=== PATIENT | male | born 1970 | race African-American/Black ===

== ENCOUNTER 2017-03-02 15:03 | Emergency (ER) | payer OTHER ==
[~2017-03-02] VITALS: Ht 177.8 cm; Wt 95.3 kg
[2017-03-02 15:19] VITALS: BP 167/104
--- NOTE | 2017-03-02 15:36 | RAD ---
Right foot, 3 views, 03/02/2017: History: Injury There are couple of tiny calcific densities along the medial aspect of the distal phalanx of the second toe compatible with cortical fracture fragments. These may be old. No other fracture or dislocation is identified. There is mild subcutaneous edema. Arterial calcifications are present. IMPRESSION: Small cortical fracture of the distal phalanx of the second toe which may be old. Clinical correlation with the site of the patient's current pain is suggested.
--- NOTE | 2017-03-02 15:47 | PHYS DOC ---
Past History Past Medical History: Asthma, Diabetes, High Cholesterol, Hypertension Past Surgical History: No Surgical History Additional Smoking Information: CHEWS TOBACCO Alcohol Use: None Drug Use: None Adult General Chief Complaint Chief Complaint: FOOT INJURY PAIN HPI HPI Patient is a 46 year old M who presents with right second toe pain after dropping a table on his foot. He feels that his pain is dull constant and worse with movement or palpation. His pain is also worse with walking. His pain is improved with rest and positioning. He has no other associated symptoms. Review of Systems Review of Systems Constitutional: Denies fever or chills [] Eyes: Denies change in visual acuity, redness, or eye pain [] HENT: Denies nasal congestion or sore throat [] Respiratory: Denies cough or shortness of breath [] Cardiovascular: No additional information not addressed in HPI [] GI: Denies abdominal pain, nausea, vomiting, bloody stools or diarrhea [] : Denies dysuria or hematuria [] Musculoskeletal: Denies back pain Integument: Denies rash or skin lesions [] Neurologic: Denies headache, focal weakness or sensory changes [] Endocrine: Denies polyuria or polydipsia [] All other systems were reviewed and found to be within normal limits, except as documented in this note. Family History Family History No pertinent family history was reported Current Medications Current Medications Medications reviewed Allergies Allergies Allergies Coded Allergies Type Severity Reaction Last Updated Verified No Known Drug Allergies 03/02/17 No Physical Exam Physical Exam Constitutional: Well developed, well nourished, no acute distress, non-toxic appearance. [] HENT: Normocephalic, atraumatic, bilateral external ears normal, oropharynx moist, no oral exudates, nose normal. [] Eyes: EOMI, conjunctiva normal, no discharge. [] Cardiovascular:Heart rate regular rhythm, Lungs & Thorax: Bilateral breath sounds clear to auscultation [] Skin: Warm, dry, no erythema, no rash. [] Extremities: no cyanosis, no clubbing, ROM intact mild swelling and ecchymosis of the distal right second toe with tenderness to palpation. Pain with range of motion of the second toe. Neurovascularly intact Neurologic: Alert and oriented X 3, normal motor function, normal sensory function, no focal deficits noted. [] Psychologic: Affect normal, judgement normal, mood normal. [] Current Patient Data Vital Signs Vital Signs Date Time Temp Pulse Resp B/P (MAP) Pulse Ox O2 Delivery O2 Flow Rate FiO2 03/02/17 15:19 96.6 106 16 97 Room Air EKG EKG [] Radiology/Procedures Radiology/Procedures right foot x-ray Impressions: Distal second toe cortical fracture Course & Med Decision Making Course & Med Decision Making Pertinent Labs and Imaging studies reviewed. (See chart for details) [] Dragon Disclaimer Dragon Disclaimer This electronic medical record was generated, in whole or in part, using a voice recognition dictation system. Departure Departure: Impression: Primary Impression: Fracture of second toe, right, closed Disposition: HOME, SELF-CARE Condition: STABLE Referrals: NON,STAFF (PCP) Patient Instructions: Crush Injury, Fingers or Toes Additional Instructions: Jose was seen in the emergency department for toe injury. No emergency medical condition was found on history or physical exam. He did have an x-ray which showed mild fracture of the end of his second toe on the right foot. He was given a hard soled shoe, postop shoe for his symptoms. He was also encouraged to use lidocaine patches for pain. Is advised follow-up with his primary care doctor as needed for further management. Problem Qualifiers Primary Impression: Fracture of second toe, right, closed Encounter type: initial encounter Qualified Codes: S92.501A - Displaced unspecified fracture of right lesser toe(s), initial encounter for closed fracture MARISEL PETERSON MD Mar 02, 2017 15:46
== END 2017-03-02 15:57 | disposition home or self-care (01) ==
LOC: ER 15:03
DX: S92.531A Displaced fracture of distal phalanx of right lesser toe(s), initial encounter for closed fracture (principal); E11.9 Type 2 diabetes mellitus without complications; E78.00 Pure hypercholesterolemia, unspecified; I10 Essential (primary) hypertension; J45.909 Unspecified asthma, uncomplicated; F17.220 Nicotine dependence, chewing tobacco, uncomplicated; W20.8XXA Other cause of strike by thrown, projected or falling object, initial encounter; Y93.89 Activity, other specified; Y99.8 Other external cause status; Y92.89 Other specified places as the place of occurrence of the external cause
CPT/HCPCS: 73630; 99284